=== PATIENT | male | born 1980 | race Hispanic/Latino ===

== ENCOUNTER → 2024-11-10 | Outpatient (CLI) | payer BC ==
[~2024-11-10] MED LIST: IOHEXOL 350 MG/ML 100ML INFUS..BTL IV ONE
--- NOTE | 2024-11-10 10:38 | HMCIMG ---
Exam Type: CT ABDOMEN AND PELVIS WITH ORAL AND IV CONTRAST Clinical Information: RLQ PAIN Comparison: Contrast: cc's Ultra 300 IV, 370 IV, no complications Technique: Routine helical scanning at 5mm collimation through the abdomen and pelvis was performed after oral and intravenous contrast. CT Dose Index (CTDI): mGy Dose Length Product (DLP): total mGy-cm Findings: The lung bases are clear. The liver, gallbladder, spleen, pancreas, adrenal glands and kidneys are normal in appearance. No pathologic lymphadenopathy is evident. The intestinal gas pattern shows no evidence of dilatation to suggest obstruction or adynamic ileus. There is no evidence of constipation and no bowel wall lesions are noted to suggest neoplasm. The colon is unremarkable except for diverticulosis of the sigmoid, without acute inflammation to suggest diverticulitis. Specifically, no large or small bowel dilatation or air/ fluid levels are noted to suggest obstruction or adynamic ileus. There is no evidence of pneumoperitoneum. The appendix is unremarkable. The pelvic viscera are normal in CT appearance. The perirectal fat planes are clear. The visualized osseous elements are normal for the patient's age. IMPRESSION: NEGATIVE CT SCAN OF THE ABDOMEN AND PELVIS WITH ORAL AND IV CONTRAST EXCEPT FOR DIVERTICULOSIS.
== END | disposition home or self-care (01) ==
LOC: RAH 09:08
PROVIDERS: ATTEND Internal Medicine Gastroenterology
DX: K57.30 Diverticulosis of large intestine without perforation or abscess without bleeding (principal); R10.31 Right lower quadrant pain
CPT/HCPCS: 74177; Q9967